=== PATIENT | male | born 1950 | race Caucasian/White ===

== ENCOUNTER 2021-08-07 00:23 | Emergency (ER) | payer MEDICARE ==
[~2021-08-07 00:23] MED LIST: FLEXERIL10 MG PO
[2021-08-07 01:07] LABS: BASOPHIL 0.6 % (0-2); EOSINOPHIL 1.8 % (0-7); HCT 47.8 % (42.0-52.0); HGB 15.9 g/dl (13.2-18.0); MCH 29.7 pg (25.0-31.0); MCHC 33.3 g/dL (32.0-36.0); MCV 89.3 fL (78.0-100.0); MONOCYTE 11.3 % (0-12); MPV 9.4 fL (6.0-9.5); NRBC 0; PLT 158 K/uL (150-400); RBC 5.35 M/uL (4.70-6.00); RDW 14.7 % (11.5-14.0)
[2021-08-07 01:36] LABS: ALBUMIN 3.6 g/dL (3.4-5.0); BILIRUBIN - TOTAL 0.4 mg/dL (0.2-1.0); BUN/CREAT RATIO (CALC) 17.9 RATIO; CREATININE 1.23 mg/dL (0.67-1.17); GLOBULIN (CALCULATION) 3.9 g/dL; POTASSIUM 3.7 mmol/L (3.5-5.1); TOTAL PROTEIN 7.5 g/dL (6.4-8.2)
== END 2021-08-07 02:48 | disposition home or self-care (01) ==
LOC: FER 00:23
PROVIDERS: Emergency Medicine
DX: J06.9 Acute upper respiratory infection, unspecified (principal); I12.9 Hypertensive chronic kidney disease with stage 1 through stage 4 chronic kidney disease, or unspecified chronic kidney disease; N18.9 Chronic kidney disease, unspecified; Z79.899 Other long term (current) drug therapy; Z20.822 Contact with and (suspected) exposure to COVID-19
CPT/HCPCS: 36415; 71045; 80053; 82728; 83615; 84484; 85025; 85379; 93005; U0002